=== PATIENT | female | born 1995 | race Two or more races ===

== ENCOUNTER 2025-05-12 13:18 | Outpatient (AMB) | payer BC, SELFPAY ==
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
[2025-05-12 13:52] VITALS: BP 110/66; PULSE 66; RESP 17; TEMP 36.6; O2SAT 98; BMI 21.0
== END 2025-05-12 14:05 | disposition home or self-care (01) ==
LOC: HODSOBC 13:18
PROVIDERS: PCP Family Medicine; Referring Provider Family Medicine; Supervising Provider Advanced Practice Midwife; Visit Provider Advanced Practice Midwife
DX: Z34.81 Encounter for supervision of other normal pregnancy, first trimester (principal); Z3A.00 Weeks of gestation of pregnancy not specified
CPT/HCPCS: 99215; G0463

== ENCOUNTER → 2025-06-04 | Outpatient (CLI) | payer BC, SELFPAY ==
--- NOTE | 2025-06-04 16:00 | XR_ITS ---
Examination: Complete OB ultrasound, less than 14 weeks, transabdominal Date and time of exam: June 04, 2025, 1609 hours INDICATIONS: First trimester , unknown dates Technique: Obstetrical ultrasound images less than 14 weeks performed via transabdominal imaging Findings: A normal shaped single intrauterine gestation is present in the uterus. CRL 3.7 cm corresponds to 10 weeks 4 days gestational age Cardiac motion 158 BPM Ultrasonographic survey of visible and placental structures unremarkable. Amniotic fluid volume appears appropriate for this estimated gestational age. Right ovary 3.2 cm arterial flow. Left ovary 2.6 cm arterial flow IMPRESSION: Viable intrauterine gestation 10 weeks 4 days.
== END | disposition home or self-care (01) ==
PROVIDERS: Referring Provider Advanced Practice Midwife; Visit Provider Advanced Practice Midwife
DX: Z34.81 Encounter for supervision of other normal pregnancy, first trimester (principal); Z3A.10 10 weeks gestation of pregnancy
CPT/HCPCS: 76801

== ENCOUNTER 2025-06-14 08:26 | Outpatient (AMB) | payer BC, SELFPAY ==
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
[2025-06-14 08:36] VITALS: BP 111/69; PULSE 92; RESP 19; TEMP 36.7; O2SAT 98; BMI 21.6
== END 2025-06-14 09:22 | disposition home or self-care (01) ==
LOC: HODSOBC 08:26
PROVIDERS: Supervising Provider Advanced Practice Midwife; Visit Provider Advanced Practice Midwife
DX: Z34.81 Encounter for supervision of other normal pregnancy, first trimester (principal); Z3A.12 12 weeks gestation of pregnancy
CPT/HCPCS: 99214; G0463

== ENCOUNTER 2025-07-13 09:40 | Outpatient (AMB) | payer BC, SELFPAY ==
[2025-07-13 10:09] VITALS: BP 98/61; PULSE 67; RESP 14; TEMP 36.5; O2SAT 98; BMI 21.5
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
== END 2025-07-13 10:50 | disposition home or self-care (01) ==
LOC: HODSOBC 09:40
PROVIDERS: Supervising Provider Advanced Practice Midwife; Visit Provider Advanced Practice Midwife
DX: O09.92 Supervision of high risk pregnancy, unspecified, second trimester (principal); Z3A.16 16 weeks gestation of pregnancy
CPT/HCPCS: 99214; G0463

== ENCOUNTER 2025-08-10 08:32 | Outpatient (AMB) | payer BC, SELFPAY ==
[2025-08-10 08:39] VITALS: BP 91/57; PULSE 75; RESP 18; TEMP 36.6; O2SAT 98; BMI 21.3
--- NOTE | 2025-08-10 08:39 | AMB.OBPNC ---
Vital Signs 08/10/25 08:39 Height 1.57 m Height Method Stated Weight 52.617 kg Weight Measurement Method Standing Scale BMI 21.3 BP 91/57 L Blood Pressure Source Automatic Cuff Blood Pressure Location Right Upper Arm Position Sitting Respiration 18 Pulse 75 Pulse Source Monitor Temp 97.8 F Temp Source Temporal Artery Scan Pulse Oximetry (%) 98 Oxygen Delivery Method Room Air Allergies/Home Meds Allergies & Medications Allergies No Known Allergies Allergy (Verified 08/10/25 08:41) Medication Reconciliation PNV 153-FA 400 mcg-om3 35 mg-dha 25 mg-epa 5 mg-fish oil chew tablet ( Gummies) 1 tab PO QDAY 90 days #90 tabs 05/12/25 [Rx Confirmed 08/10/25] Immunizations Immunizations Flu Vaccine in the Last 12 Months: No Flu Vaccine Exclusion Criteria: No Exclusion Criteria Care OB Visit Log OB Flowsheet Initial Weight: Not Recorded Date <del>?</del> EGA Weight BP Alb Glu CTX Pres Fundal ht FHR Mov Dilation Station Effacement Hx Notes Visit Note 06/14/25 <del>?</del> 12w 2d 53.297 kg 111/69 absent unknown 12 156 absent No OB complaints. Denies SAB signs and symptoms. Denies bleeding or leaking. Doing well NIPT and carrier screen today. Referral to [facility] for anatomy scan. Discussed dates. Discussed SAB precautions. Continue prenatals. Return in 4 weeks OB to 07/13/25 <del>?</del> 16w 3d 53.184 kg 98/61 absent unknown 16 156 absent insurance not accepted by [facility], no plt complaints,light fm AFP, f/u scan at [facility] at 24 week 08/10/25 <del>?</del> 20w 3d 52.617 kg 91/57 absent unknown 19 156 active No OB complaints. Doing well. No leaking, bleeding, contractions Schedule at [facility] for anatomy scan. Discussed labor. Increase fluids. Continue to eat small frequent meals and increase calories. JOSE D Calculator Estimated Delivery Date Method Current WG Current Estimate 12/25/25 Ultrasound #2 20w 3d Other Estimates 12/27/25 LMP (Certain) 20w 1d 12/27/25 Ultrasound #1 20w 1d 12/27/25 Manual 20w 1d final jose d: 12/27/25 Notes Visit Date: 08/10/25 Last Updated by: Leandra Odonnell CNM AFP- Visit Date: 07/13/25 Last Updated by: Leandra Odonnell CNM NIPT/carrier screen- Visit Date: 06/14/25 Last Updated by: Leandra Odonnell CNM OB Panel: O+,abs-, rpr;;nr, rub imm, hbsag-, hiv-, HC-, GC/CT-, A1: 4.8, 13/40, 169 30 yo . JOSE . LMP: 03/22/25 Office Procedures OBC Clinic LOC & Office Proc's Nursing/Assessment Patient Status: Established Patient OB Clinic Nursing Assessment: Medication Reconciliation, Update PMH in EMR and Vital Signs OB Clinic Coordination of Care: Complex Care and Chronic Disease 1-5, Education Complex Pt/Fam, Consent,records obtained, informed consent, Lab and Imaging orders and Staff clarify orders Special Needs: Heart tones Established Patient Charge Established Patient Point Assignment: 135 Established Patient Point Charge: EP Level 4 (120-155) Assessment & Plan Diagnosis / Problem List (1) Encounter for supervision of high risk in second trimester, antepartum: Status: Acute Plan Schedule anatomy scan at [facility]. Continue to work on eating more proteins. Small frequent meals. Continue to get regular exercise lots of fluids and take prenatals. Discussed labor precautions. Return in 4 weeks OB check Additional Plan Follow Up: 4 Weeks (obc)
== END 2025-08-10 09:11 | disposition home or self-care (01) ==
LOC: HODSOBC 08:32
PROVIDERS: Supervising Provider Advanced Practice Midwife; Visit Provider Advanced Practice Midwife
DX: O09.92 Supervision of high risk pregnancy, unspecified, second trimester (principal); Z3A.20 20 weeks gestation of pregnancy
CPT/HCPCS: 99214; G0463

== ENCOUNTER 2025-09-07 09:10 | Outpatient (AMB) | payer BC, SELFPAY ==
[2025-09-07 09:27] VITALS: BP 104/58; PULSE 69; RESP 18; TEMP 36.1; O2SAT 98; BMI 22.1
--- NOTE | 2025-09-07 09:27 | OBCLNT_ITS ---
Vital Signs 09/07/25 09:27 Height 1.57 m Height Method Stated Weight 54.658 kg Weight Measurement Method Standing Scale BMI 22.1 BP 104/58 L Blood Pressure Source Automatic Cuff Blood Pressure Location Left Upper Arm Position Sitting Respiration 18 Pulse 69 Pulse Source Monitor Temp 97.0 F Temp Source Oral Pulse Oximetry (%) 98 Oxygen Delivery Method Room Air Allergies/Home Meds Allergies & Medications Allergies No Known Allergies Allergy (Verified 09/07/25 09:28) Medication Reconciliation PNV 153-FA 400 mcg-om3 35 mg-dha 25 mg-epa 5 mg-fish oil chew tablet ( Gummies) 1 tab PO QDAY 90 days #90 tabs 05/12/25 [Rx Confirmed 09/07/25] Immunizations Immunizations Flu Vaccine in the Last 12 Months: No Flu Vaccine Exclusion Criteria: Refused by Patient Care OB Visit Log OB Flowsheet Initial Weight: Not Recorded Date -?-?-?-?-?-?-?-?-?-?-?-?- EGA Weight BP Alb Glu CTX Pres Fundal ht FHR Mov Dilation Station Effacement Hx Notes Visit Note 06/14/25 -?-?-?-?-?-?-?-?-?-?-?-?- 12w 2d 53.297 kg 111/69 absent unknown 12 156 absent No OB complaints. Denies SAB signs and symptoms. Denies bleeding or leaking. Doing well NIPT and carrier screen today. Referral to [facility] for anatomy scan. Discussed dates. Discussed SAB precautions. Continue prenatals. Return in 4 weeks OB to 07/13/25 -?-?-?-?-?-?-?-?-?-?-?-?- 16w 3d 53.184 kg 98/61 absent unknown 16 156 absent insurance not accepted by [facility], no plt complaints,light fm AFP, f/u scan at [facility] at 24 week 08/10/25 -?-?-?-?-?-?-?-?-?-?-?-?- 20w 3d 52.617 kg 91/57 absent unknown 19 156 active No OB complaints. Doing well. No leaking, bleeding, contractions Schedule at [facility] for anatomy scan. Discussed labor. Increase fluids. Continue to eat small frequent meals and increase calories. 09/07/25 -?-?-?-?-?-?-?-?-?-?-?-?- 24w 3d 54.658 kg 104/58 absent unknown 24 156 active Reports good movement. Denies leaking or bleeding. She has no OB complaints. Fetus is active Third trimester labs today today. Continue labor precautions. Increase fluids. Discussed diet and weight. Return in 4 weeks OB to [facility] Calculator Estimated Delivery Date Method Current WG Current Estimate 12/25/25 Ultrasound #2 24w 3d Other Estimates 12/27/25 LMP (Certain) 24w 1d 12/27/25 Ultrasound #1 24w 1d 12/27/25 Manual 24w 1d final jose d: Notes Visit Date: 09/07/25 Last Updated by: Leandra Odonnell CNM sono 08/23/25: 22w. 31.6%, no previaAFI normal Visit Date: 08/10/25 Last Updated by: Leandra Odonnell CNM AFP- Visit Date: 07/13/25 Last Updated by: Leandra Odonnell CNM NIPT/carrier screen- Visit Date: 06/14/25 Last Updated by: Leandra Odonnell CNM OB Panel: O+,abs-, rpr;;nr, rub imm, hbsag-, hiv-, HC-, GC/CT-, A1: 4.8, 13/40, 169 30 yo . [facility] . LMP: 03/22/25 Office Procedures [facility] LOC & Office Proc's Nursing/Assessment Patient Status: Established Patient OB Clinic Nursing Assessment: Medication Reconciliation, Update PMH in EMR and Vital Signs OB Clinic Coordination of Care: Consent,records obtained, informed consent, Education Simp Pt/Fam, Lab and Imaging orders, Results/Orders obtained and Staff clarify orders Special Needs: Heart tones Established Patient Charge Established Patient Point Assignment: 110 Established Patient Point Charge: EP Level 3 (80-115) Assessment & Plan Diagnosis / Problem List (1) Encounter for supervision of high risk in second trimester, antepartum: Status: Acute Plan Third trimester labs. Discussed labor precautions. Sono pending with M. Return in 4 weeks OB check Additional Plan Follow Up: 4 Weeks (obc)
== END 2025-09-07 09:58 | disposition home or self-care (01) ==
LOC: HODSOBC 09:10
PROVIDERS: Supervising Provider Advanced Practice Midwife; Visit Provider Advanced Practice Midwife
DX: O09.92 Supervision of high risk pregnancy, unspecified, second trimester (principal); Z3A.24 24 weeks gestation of pregnancy; Z28.21 Immunization not carried out because of patient refusal
CPT/HCPCS: 99213; G0463